=== PATIENT | female | born 1970 | race Caucasian/White ===

== ENCOUNTER 2023-05-20 08:05 | Outpatient (CLI) | payer BC, SELFPAY ==
--- NOTE | ~2023-05-20 | XR_ITS ---
EXAMINATION: XR lg joint inject/asp w image DATE: 05/20/2023 09:03 INDICATION: Left shoulder adhesive capsulitis TECHNIQUE: A time-out was performed to verify the patient's name, date of , and procedure to b e performed. The procedure including the risks, benefits, and alternatives was discussed with the pat ient. Risks discussed included bleeding and infection. The patient understood the risks and agreed to proceed. The skin overlying the left glenohumeral joint was prepped and draped in usual sterile fas hion. Anesthetic was administered with 1% lidocaine subcutaneously. A 22 G needle was advanced unde r fluoroscopic guidance into the joint. Injection of 1 mL of Omnipaque 240 confirmed intra-articular position of the needle. Subsequently, injectate consisting of 5 mL a 4:1 mixture of 1% lidocaine: 8 0 mg/mL Depo-Medrol for a total dosage of 80 mg Depo-Medrol was instilled. Washout of contrast was se en confirming intra-articular administration. The needle was removed and the entry site was cleaned a nd dressed. There were no immediate complications. Fluoroscopy exposure time was 0.1 minutes. The to reynaldo number of images was 2. Total DAP was 0.1 Gycm^2 FINDINGS: Real-time fluoroscopy demonstrates the needle in the left glenohumeral joint. Patient's berry n prior to procedure:2. Patient's pain following the procedure: 06/26. IMPRESSION: 1. Left glenohumeral joint injection of local anesthetic and steroid with decrease in the patient's p resenting pain. Reviewed, dictated and finalized at location A. [employer] IMPRESSION: 1. Left glenohumeral joint injection of local anesthetic and steroid with decre ase in the patient's presenting pain.
== END 2023-05-20 08:06 | disposition home or self-care (01) ==
PROVIDERS: PCP Internal Medicine; Visit Provider Orthopaedic Surgery
DX: M75.02 Adhesive capsulitis of left shoulder (principal)
CPT/HCPCS: 20610; 77002; J1040; Q9966